=== PATIENT | male | born 1930 | race Caucasian/White ===

== ENCOUNTER 2018-01-19 08:33 | Emergency (ER) | payer OTHER ==
[~2018-01-19] VITALS: Ht 181.6 cm; Wt 56.7 kg
[2018-01-19] MEDS ORDERED: IPRATROPIUM BROMIDE 0.02% 2.5 ML NEB NEB STA (08:52)
[2018-01-19] MEDS ORDERED: ALBUTEROL SULF 0.083% NEB SOLN 3 ML NEB NEB STA (08:52)
[2018-01-19] MEDS ORDERED: METHYLPREDNISOLONE SOD SUCC 125 MG/2ML VIAL IV ONE (09:00)
[2018-01-19] MEDS ORDERED: SODIUM CHLORIDE FLUSH 10 ML SYR INJ PRN (09:00)
--- NOTE | 2018-01-19 09:37 | Diagnostic Imaging Report ---
EXAMINATION: CHEST 2 VIEWS INDICATION: Cough, shortness of breath COMPARISON: None FINDINGS: PA and lateral views TUBES and LINES: None. LUNGS: The lungs are hyperinflated consistent with small airways disease. Small focus of airspace disease in the lateral right upper lobe may be acute or chronic. No interstitial or pulmonary edema. PLEURA: Blunting of the lateral costophrenic angles could be due to pleural thickening or pleural effusion HEART AND MEDIASTINUM: The cardiomediastinal silhouette is unremarkable.. BONES AND SOFT TISSUES: Diffusely demineralized. No focal osseous lesions. Soft tissues are unremarkable. UPPER ABDOMEN: No free air under the diaphragm. IMPRESSION: 1. Pulmonary hyperinflation consistent with COPD. 2. Small airspace opacity in the lateral right upper lobe may be the result of pneumonia or mass. Please correlate for signs/symptoms of infection. Close interval follow-up is recommended to confirm stability or to document resolution. Signed by: Dr. Lindsay Zaidi MD on 01/19/2018 9:33 AM
[2018-01-19 10:04] LABS: BASOPHILS % 0.3 % (0.0-1.0); EOSINOPHILS % 0.5 % (0.0-6.0); HEMATOCRIT 31.3 % (38.2-49.6); HEMOGLOBIN 10.2 g/dL (14.0-18.0); LYMPHOCYTES # (AUTO) 0.8 (1.0-3.2); LYMPHOCYTES % 9.9 % (18.0-39.1); MEAN CORPUSCULAR HEMOGLOBIN 29.1 pg (28-32); MEAN CORPUSCULAR HGB CONC 32.6 g/dL (31-35); MEAN CORPUSCULAR VOLUME 89.2 fL (81-99); MONOCYTES # (AUTO) 0.5 (0.2-0.8); MONOCYTES % 6.1 % (4.4-11.3); NEUTROPHILS # (AUTO) 6.3 (2.1-6.9); NEUTROPHILS % 82.7 % (38.7-80.0); PLATELET COUNT 305 x10e3/uL (140-360); RED BLOOD COUNT 3.51 x10e6/uL (4.3-5.7); RED CELL DISTRIBUTION WIDTH 13.2 % (11.7-14.4)
[2018-01-19 10:23] LABS: ALANINE AMINOTRANSFERASE 45 IU/L (0-55); ALBUMIN 3.1 g/dL (3.5-5.0); ALBUMIN/GLOBULIN RATIO 0.8 (0.8-2.0); ALKALINE PHOSPHATASE 87 IU/L (40-150); ANION GAP 13.9 mmol/L (8-16); BLOOD UREA NITROGEN 19 mg/dL (7-26); BUN/CREATININE RATIO 18 (6-25); CALCIUM 9.2 mg/dL (8.4-10.2); CARBON DIOXIDE 26 mmol/L (22-29); CHLORIDE 94 mmol/L (98-107); CREATINE KINASE 24 IU/L (30-200); CREATININE, SERUM 1.05 mg/dL (0.72-1.25); EST GLOMERULAR FILTRATION RATE > 60 ML/MIN (60-); GLUCOSE 97 mg/dL (74-118); POTASSIUM 3.9 mmol/L (3.5-5.1); SODIUM 130 mmol/L (136-145)
[2018-01-19] MEDS ORDERED: LEVOFLOXACIN 750MG/D5W 150ML 150 ML IV ONE (11:00)
[2018-01-19 11:03] VITALS: BP 155/76
== END 2018-01-19 11:51 | disposition home or self-care (01) ==
LOC: ER 08:33
DX: R06.00 Dyspnea, unspecified (principal); R05 Cough; J15.9 Unspecified bacterial pneumonia; J44.9 Chronic obstructive pulmonary disease, unspecified; I10 Essential (primary) hypertension; I51.9 Heart disease, unspecified; F17.210 Nicotine dependence, cigarettes, uncomplicated
CPT/HCPCS: 36415; 71046; 80053; 82550; 82553; 83880; 84484; 85025; 93005; 94640; 99284; J2930

== ENCOUNTER 2018-01-21 21:47 | Inpatient (IN) | payer OTHER ==
[~2018-01-21] VITALS: Ht 181.6 cm; Wt 77.3 kg
[2018-01-21] MEDS ORDERED: LORAZEPAM INJ 2 MG/ML VIAL ONE (22:15)
[2018-01-21] MEDS ORDERED: LORAZEPAM INJ 2 MG/ML VIAL IV ONE (22:15)
[2018-01-21] MEDS ORDERED: FENTANYL CITRATE/PF 100MCG/2 ML INJ IV ONE ×2 (22:15→22:30)
[2018-01-21] MEDS ORDERED: FENTANYL CITRATE/PF 100MCG/2 ML INJ ONE (22:16)
--- NOTE | 2018-01-21 22:23 | Diagnostic Imaging Report ---
EXAM: PELVIS AP 1-2 VIEWS INDICATION: Dislocated right hip COMPARISON: None FINDINGS: BONES: No acute fractures. Total right hip arthroplasty. JOINTS: Superior dislocation of the right femoral prosthetic component in relation to the acetabular component. SOFT TISSUES: Right-sided soft tissue edema. IMPRESSION: Superior dislocation of the right hip arthroplasty. Signed by: Dr. Amber Lujan M.D. on 01/21/2018 10:19 PM
[2018-01-21 23:05] LABS: BASOPHILS % 0.2 % (0.0-1.0); EOSINOPHILS # (AUTO) 0.1 (0.0-0.4); EOSINOPHILS % 0.8 % (0.0-6.0); HEMOGLOBIN 10.4 g/dL (14.0-18.0); LYMPHOCYTES # (AUTO) 1.7 (1.0-3.2); LYMPHOCYTES % 19.5 % (18.0-39.1); MEAN CORPUSCULAR HEMOGLOBIN 28.7 pg (28-32); MEAN CORPUSCULAR HGB CONC 32.5 g/dL (31-35); MEAN CORPUSCULAR VOLUME 88.4 fL (81-99); MONOCYTES # (AUTO) 0.4 (0.2-0.8); MONOCYTES % 4.8 % (4.4-11.3); NEUTROPHILS # (AUTO) 6.4 (2.1-6.9); NEUTROPHILS % 74.1 % (38.7-80.0); PLATELET COUNT 401 x10e3/uL (140-360); RED BLOOD COUNT 3.62 x10e6/uL (4.3-5.7); RED CELL DISTRIBUTION WIDTH 13.2 % (11.7-14.4)
[2018-01-21 23:09] LABS: INR 1.07; PROTHROMBIN TIME 13.1 seconds (11.9-14.5)
[2018-01-21 23:10] LABS: PARTIAL THROMBOPLASTIN TIME 35.3 seconds (23.8-35.5)
[2018-01-21 23:19] LABS: ALANINE AMINOTRANSFERASE 109 IU/L (0-55); ALBUMIN 3.1 g/dL (3.5-5.0); ALBUMIN/GLOBULIN RATIO 0.8 (0.8-2.0); ALKALINE PHOSPHATASE 95 IU/L (40-150); ANION GAP 15.4 mmol/L (8-16); BLOOD UREA NITROGEN 30 mg/dL (7-26); BUN/CREATININE RATIO 29 (6-25); CALCIUM 8.8 mg/dL (8.4-10.2); CARBON DIOXIDE 26 mmol/L (22-29); CHLORIDE 97 mmol/L (98-107); CREATININE, SERUM 1.05 mg/dL (0.72-1.25); EST GLOMERULAR FILTRATION RATE > 60 ML/MIN (60-); GLUCOSE 98 mg/dL (74-118); MAGNESIUM 1.7 MG/DL (1.3-2.1); POTASSIUM 4.4 mmol/L (3.5-5.1); SODIUM 134 mmol/L (136-145)
[2018-01-21] MEDS ORDERED: LISINOPRIL10 MG PO (23:27)
[2018-01-21] MEDS ORDERED: AZITHROMYCIN250 MG PO (23:28)
[2018-01-21] MEDS ORDERED: OMEPRAZOLE40 MG PO (23:28)
[2018-01-21] MEDS ORDERED: SYNTHROID100 MCG PO (23:29)
[2018-01-21] MEDS ORDERED: CEFDINIR300 MG PO (23:29)
[2018-01-21] MEDS ORDERED: SENNA LAX8.6 MG PO (23:30)
[2018-01-21] MEDS ORDERED: ASPIR 8181 MG PO (23:31)
[2018-01-21] MEDS ORDERED: NORCO 5-325 TA1 EACH PO (23:31)
[2018-01-21] MEDS ORDERED: DIGOXIN125 MCG PO (23:32)
[2018-01-21] MEDS ORDERED: PROAIR HFA INH8.5 GM INH (23:32)
[2018-01-21] MEDS ORDERED: SODIUM CHLORIDE 0.9% 1000ML 1,000 ML IV SCH (23:39)
[2018-01-21 23:45] LABS: CREATINE KINASE 29 IU/L (30-200)
[2018-01-21] MEDS ORDERED: ONDANSETRON HCL INJ 2 MG/ML VIAL IV PRN (23:45)
[2018-01-21] MEDS ORDERED: MORPHINE SULFATE 2 MG/ML SYR IV PRN (23:45)
--- NOTE | 2018-01-21 23:52 | Diagnostic Imaging Report ---
EXAM: CHEST SINGLE (PORTABLE), AP 1 view INDICATION: Right hip dislocation COMPARISON: PA and lateral view of the chest January 19, 2018 FINDINGS: LINES/TUBES: None LUNGS: No consolidations or edema. Emphysematous changes. Stable right upper lung peripheral opacity. PLEURA: No effusions or pneumothorax. HEART AND MEDIASTINUM: Normal size and contour. BONES AND SOFT TISSUES: No acute findings. IMPRESSION: No interval change in appearance of the chest. Signed by: Dr. Amber Lujan M.D. on 01/21/2018 11:48 PM
[2018-01-22] VITALS (7 sets, daily range): BP systolic 110–161; BP diastolic 66–74
[2018-01-22 01:53] LABS: BILIRUBIN,URINE NEGATIVE (NEGATIVE); CLARITY,URINE CLEAR (CLEAR); COLOR,URINE YELLOW (YELLOW); KETONES,URINE NEGATIVE (NEGATIVE); LEUKOCYTE ESTERASE ,URINE NEGATIVE (NEGATIVE); MUCUS,URINE FEW (RARE); NITRITE,URINE NEGATIVE (NEGATIVE); PROTEIN,URINE DIPSTICK NEGATIVE (NEGATIVE); RBC,URINE 0-5 /HPF (0-5); URINE UROBILINOGEN 0.2 mg/dL (0.2 - 1); WBC,URINE (MAN) 0-5 /HPF (0-5)
[2018-01-22] MEDS ORDERED: ALBUTEROL SULFATE HFA 8GM INHALATION AEROSOL INH PRN (07:45)
[2018-01-22] MEDS ORDERED: SENNOSIDES 8.6 MG TAB PO PRN (07:45)
[2018-01-22] MEDS: PANTOPRAZOLE SOD 40 MG TABEC PO SCH (08:30)
--- NOTE | 2018-01-22 08:36 | History and Physical ---
REFERRING PHYSICIAN: Satya Costa MD CHIEF COMPLAINT: Hip dislocation and infiltrate in the right upper lung. HISTORY OF PRESENT ILLNESS: The patient is an 87-year-old man. He is a prior smoker who uses inhalers on an as needed basis. He had a prior hip replacement and reports having had dislocations several times over the past couple of years. Last night he came to the emergency department with worsening hip pain and inability to move his hip. The x-rays confirmed a dislocation of the prosthetic hip. Emergency department physician attempted to reduce it, but was unable to. The patient denies any fever. There is no nausea or vomiting. He does not have any cough or chest congestion. PAST MEDICAL HISTORY 1. Hypertension. 2. Thyroid cancer. 3. COPD. PAST SURGICAL HISTORY: Status post total hip replacement. FAMILY HISTORY: Noncontributory. SOCIAL HISTORY: The patient lives at home with family members. He is an active smoker, but he is not an active drinker. ALLERGIES: THERE ARE NO KNOWN DRUG ALLERGIES. REVIEW OF SYSTEMS: The patient is afebrile. He does not report any headache or neck pain. He has no throat pain. He does not complain of any neck pain. He is not complaining of shortness breath or cough. He does not have chest pain. There is no nausea or vomiting. He does report right hip pain and difficulty moving his hip. PHYSICAL EXAMINATION VITAL SIGNS: Stable. Saturation is 98% on 1 liter. HEENT: No facial swelling or erythema. Nasal mucosa is normal. The oropharynx is normal. LYMPHATIC: No submandibular, cervical or supraclavicular adenopathy. CARDIAC: Regular and rhythm with normal S1 and S2. There are no murmurs or rubs. LUNGS: Auscultation of the lungs reveals clear breath sounds bilaterally. There is no wheezing. ABDOMEN: Soft and nontender. There is no rebound or guarding. EXTREMITIES: Dislocated right hip. NEUROLOGIC: No focal abnormalities. LABORATORY DATA: The XEZ-yi-ocobqilpen ratio is 10:1.29. Sodium is 134. The hemoglobin is 10.4 with an MCV of 88. RADIOGRAPHIC DATA: The chest x-ray shows a right upper lung opacity that seems unchanged compared to prior films. IMPRESSION 1. Right upper lobe lung nodule versus opacity. 2. Dislocated prosthetic hip. 3. Chronic obstructive pulmonary disease. 4. Hypertension. PLAN 1. Patient will have a reduction of the hip under anesthesia by orthopedics with further recommendations to follow. 2. Chest CT to evaluate the right upper lobe nodule versus infiltrate. 3. Smoking cessation. 4. Continue current inhaler regimen. 5. Continue thyroid medicine and antihypertensive regimen. Job#: [id number]
[2018-01-22] MEDS: ASPIRIN 81 MG CHEW TAB PO SCH (09:00)
--- NOTE | 2018-01-22 09:20 | Diagnostic Imaging Report ---
PROCEDURE: CT CHEST WITHOUT CONTRAST CT scan of the chest WITHOUT intravenous contrast, using standard protocol. TECHNIQUE: The chest was scanned utilizing a multidetector helical scanner from the apex to the level of the adrenal glands. No IV contrast was administered because of referring physician request. Coronal and sagittal multiplanar reformations were obtained. COMPARISON: None. INDICATIONS: RUL INFILTRATE/ CHEST PAIN FINDINGS: Lines/tubes: None. Lungs and Airways: Wedge-shaped opacity in the periphery of the right upper lobe with surrounding groundglass opacities and small nodules corresponding to the radiographically identified abnormality. Scattered juxtapleural groundglass opacities in the left upper lobe, lingula, and bilateral lower lobes. Linear and reticular opacities with architectural distortion in the lung bases right greater than left. Small groundglass nodules in the dependent lower lobes. Advanced upper lobe predominant emphysematous changes. Extensive endobronchial debris in the right lower lobe bronchus and all segmental bronchi. Mild diffuse bronchiectasis. Calcified granulomata right upper lobe. Pleura: Calcified plaque along the right hemidiaphragm. Right basal pleural thickening. No pleural effusion. No pneumothorax. Heart and mediastinum: The thyroid gland is not visualized. Ectasia of the ascending thoracic aorta measuring 4.1 cm. Pulmonary outflow tract is of normal caliber. Atherosclerotic calcification of the hughes coronary arteries. No axillary, hilar, or mediastinal lymphadenopathy. No pericardial effusion. Soft tissues: Cachexia. Abdomen: The visualized portions of the liver are notable for multiple subcentimeter low-attenuation lesions, probably cysts. Calcified splenic granulomata. Apparent gastric wall thickening partially visualized may be attributable to underdistention. Bones: No osseous destructive lesions. Multilevel degenerative disc changes of the thoracic spine. IMPRESSION: Focal right upper lobe airspace disease with adjacent groundglass opacities an additional peripheral groundglass opacities as described, compatible with multifocal pneumonia. Followup chest CT in 3 months is suggested to document resolution. Extensive right lower lobe aspiration. Scattered post infectious/inflammatory fibrotic changes most notably in the right lower lobe. Right basal pleural calcification may reflect asbestos related pleural disease or a sequela of prior empyema/hemothorax. Emphysema. 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 Gastric wall thickening, partially visualized, may be attributable to underdistention. Direct visualization should be considered if clinically warranted. Dictated by: Lane Francois M.D. on 01/22/2018 at 9:27 Electronically approved by: Lane Francois M.D. on 01/22/2018 at 9:27
[2018-01-22] MEDS: DIGOXIN 0.125 MG TAB PO SCH (10:24)
[2018-01-22] MEDS: LISINOPRIL 20 MG TAB PO SCH (10:24)
[2018-01-22] MEDS ORDERED: MORPHINE SULFATE INJ 4 MG/ML INJ IV PRN (11:00)
[2018-01-22] MEDS ORDERED: ONDANSETRON HCL INJ 2 MG/ML VIAL IV PRN (13:30)
--- NOTE | 2018-01-22 14:54 | Diagnostic Imaging Report ---
Exam: Right hip 2 views History: Postop Comparison: Pelvic radiographs 01/21/2018 Findings: See impression Impression: Interval reduction of the previously described right hip prosthetic dislocation. The femoral stem now projects appropriately over the acetabular cup component. No displaced fracture. Signed by: Dr. Lane Francois M.D. on 01/22/2018 2:50 PM
[2018-01-22] MEDS: CEFTRIAXONE SOD 1 GM VIAL IV SCH ×2 (15:20→21:39)
[2018-01-22] MEDS ORDERED: PROPOFOL IV EMULSION 10 MG/ML 50 ML VIAL ONE (18:29)
[2018-01-22] MEDS ORDERED: FENTANYL CITRATE/PF 100MCG/2 ML INJ ONE (18:39)
[2018-01-22] MEDS: SODIUM CHLORIDE 0.9% 1000ML 1,000 ML IV SCH (20:10)
[2018-01-22] MEDS: CLINDAMYCIN 600MG / 50ML 50 ML IV SCH (21:39)
--- NOTE | 2018-01-22 22:08 | Operative Report ---
DATE OF PROCEDURE: January 22, 2018 PREOPERATIVE DIAGNOSIS: Dislocated right total hip arthroplasty. POSTOPERATIVE DIAGNOSIS: Dislocated right total hip arthroplasty. OPERATION/PROCEDURE PERFORMED: Patient underwent a closed reduction of the right dislocated total hip under anesthesia. ANESTHESIA: Monitored anesthesia care. BRIEF DESCRIPTION OF PATIENT'S OPERATIVE PROCEDURE: Mr. Barnett was taken to the operating room placed in the supine position on operating table. Following induction of monitored anesthesia care with IV sedation, the patient's right lower extremity was examined under anesthesia. His right leg was short compared to the left and externally rotated. Fluoroscopic evaluation of the hip joint demonstrated a dislocated total hip. The hip was placed in flexion, and longitudinal traction was placed through the hip joint. This resulted in momentary relocation of the hip. The hip, however, immediately dislocated again. Fluoroscopic evaluation confirmed that the hip had dislocated. The hip was then reduced a 2nd time and this resulted in stable relocation of the patient's hip. Hip was placed through motion and found to remain stable and not dislocate. This was confirmed using fluoroscopy. Pictures were taken and recorded at the time of surgery. The patient was provided a knee immobilizer, and then, awakened and taken to postanesthesia care in stable condition. Evaluation of the patient's limb length demonstrated return of the normal limb length of the patient equal to the non-affected side. A knee immobilizer was applied to the patient's right knee and the patient was awakened, taken to postanesthesia care unit in stable condition. Job#: [id number] CQ
[2018-01-23] VITALS (7 sets, daily range): BP systolic 105–162; BP diastolic 58–72
[2018-01-23] MEDS: LEVOTHYROXINE SODIUM 75 MCG TAB PO SCH (05:25)
[2018-01-23] MEDS: CLINDAMYCIN 600MG / 50ML 50 ML IV SCH ×3 (05:25→21:22)
[2018-01-23] MEDS: SODIUM CHLORIDE 0.9% 1000ML 1,000 ML IV SCH ×2 (05:53→20:44)
[2018-01-23] MEDS: LISINOPRIL 20 MG TAB PO SCH (08:39)
[2018-01-23] MEDS: ASPIRIN 81 MG CHEW TAB PO SCH (08:39)
[2018-01-23] MEDS: DIGOXIN 0.125 MG TAB PO SCH (08:39)
[2018-01-23] MEDS: PANTOPRAZOLE SOD 40 MG TABEC PO SCH (08:39)
[2018-01-23] MEDS ORDERED: BALSAM PERU/CASTOR OIL 60 GM OINT...G. TP PRN (13:15)
[2018-01-23] MEDS: CEFTRIAXONE SOD 1 GM VIAL IV SCH (14:05)
[2018-01-24] VITALS: BP 140/73
[2018-01-24] MEDS: CEFTRIAXONE SOD 1 GM VIAL IV SCH (02:10)
[2018-01-24 04:00] VITALS: BP 148/82
[2018-01-24] MEDS: SODIUM CHLORIDE 0.9% 1000ML 1,000 ML IV SCH (05:08)
[2018-01-24] MEDS: LEVOTHYROXINE SODIUM 75 MCG TAB PO SCH (05:08)
[2018-01-24] MEDS: CLINDAMYCIN 600MG / 50ML 50 ML IV SCH (05:08)
[2018-01-24] MEDS: PANTOPRAZOLE SOD 40 MG TABEC PO SCH (07:30)
[2018-01-24 07:46] VITALS: BP 160/74
[2018-01-24 08:57] VITALS: BP 160/74
[2018-01-24] MEDS: DIGOXIN 0.125 MG TAB PO SCH (09:00)
[2018-01-24] MEDS: ASPIRIN 81 MG CHEW TAB PO SCH (09:00)
[2018-01-24] MEDS: LISINOPRIL 20 MG TAB PO SCH (09:00)
--- NOTE | 2018-01-24 11:06 | Diagnostic Imaging Report ---
PROCEDURE:X-RAY MODIFIED BARIUM SWALLOW COMPARISON:None. INDICATIONS:Not provided. DISCUSSION:Fluoroscopic examination was performed in conjunction with speech pathology, during swallowing of a variety of thin and thick liquid consistencies. CONCLUSION:Laryngeal penetration and tracheal aspiration is noted on provided images. Please see the report from speech pathology for complete details. Dictated by: KIERA ARELLANO M.D. on 01/24/2018 at 11:13 Electronically approved by: KIERA ARELLANO M.D. on 01/24/2018 at 11:13
[2018-01-24 11:51] VITALS: BP 144/65
== END 2018-01-24 14:36 | disposition home or self-care (01) | DRG 559 ==
LOC: ER 21:47 → ERHOLD 23:59 → MED/SURG 01-22 00:35 → MED/SURG2 01-22 16:01 → OBSVTOIN 01-22 16:14
PROVIDERS: ADMIT Internal Medicine Critical Care Medicine; ATTEND Internal Medicine Critical Care Medicine
PROC: 0SS9XZZ Reposition Right Hip Joint, External Approach (ICD-10-PCS; 2018-01-22)
PROC: 0SS Lower Joints, Reposition (ICD-10-PCS; principal; 2018-01-22 13:00)
DX: T84.020A Dislocation of internal right hip prosthesis, initial encounter (principal); J69.0 Pneumonitis due to inhalation of food and vomit; E44.0 Moderate protein-calorie malnutrition; J44.9 Chronic obstructive pulmonary disease, unspecified; I10 Essential (primary) hypertension; F17.210 Nicotine dependence, cigarettes, uncomplicated; Z68.23 Body mass index [BMI] 23.0-23.9, adult; Z96.641 Presence of right artificial hip joint
CPT/HCPCS: 36415; 71045; 71250; 72170; 74230; 76000; 80053; 80162; 81001; 82550; 82553; 82948; 83735; 84484; 85025; 85610; 85730; 87086; 93005; 93306; 97139; 99284; G0378; J0696; J2060; J2270; J2405; J7030